=== PATIENT | female | born 1960 | race African-American/Black ===

== ENCOUNTER → 2018-01-23 | Outpatient (CLI) | payer OTHER ==
[~2018-01-23] MED LIST: AMBIEN; HYDROCODON-ACE1 EAC7; MUSCLE RELAXER; VITAMIN E400 UNIT
== END ==
LOC: RAD 01-21 00:40
DX: Z12.31 Encounter for screening mammogram for malignant neoplasm of breast (principal)

== ENCOUNTER → 2019-03-16 | Outpatient (CLI) | payer OTHER | LOC: BC 10:26 | DX: Z12.31 Encounter for screening mammogram for malignant neoplasm of breast (principal); Z85.3 Personal history of malignant neoplasm of breast; Z90.10 Acquired absence of unspecified breast and nipple ==

== ENCOUNTER → 2020-05-20 | Outpatient (CLI) | payer OTHER | LOC: RAD 12:54 | PROVIDERS: ATTEND Internal Medicine | DX: Z12.31 Encounter for screening mammogram for malignant neoplasm of breast (principal); N64.89 Other specified disorders of breast ==

== ENCOUNTER → 2020-05-26 | Outpatient (CLI) | payer OTHER | LOC: BC 09:13 | PROVIDERS: ATTEND Radiology Diagnostic Radiology | DX: R92.2 Inconclusive mammogram (principal) ==